=== PATIENT | female | born 1940 | race Caucasian/White ===

== ENCOUNTER → 2018-11-07 | Outpatient (CLI) | payer MEDICARE, BC ==
[~2018-11-07] MED LIST: COENZYME Q10 PO; Z.0.LISINOPRIL10 MG PO; Z.0.VITAMIN D3 1,01 PO; Z.1.VITAMIN E400 UNI PO; Z.6.FISH OIL 1,0001 PO
--- NOTE | 2018-11-07 13:53 | Diagnostic Imaging Report ---
EXAM: CT Abdomen and Pelvis WITHOUT intravenous contrast INDICATION: Diverticulitis COMPARISON: CT abdomen pelvis of 07/25/2011 TECHNIQUE: Abdomen and pelvis were scanned utilizing a multidetector helical scanner from the lung base to the pubic symphysis without administration of IV contrast. Coronal and sagittal reformations were obtained. IV CONTRAST: None ORAL CONTRAST: Gastrografin COMPLICATIONS: None RADIATION DOSE: Total DLP: 185.91 mGy*cm Dose modulation, iterative reconstruction, and/or weight based adjustment of the mA/kV was utilized to reduce the radiation dose to as low as reasonably achievable. FINDINGS: LOWER THORAX: Normal. HEPATOBILIARY: No focal hepatic lesions. No biliary ductal dilatation. The gallbladder appears unremarkable. SPLEEN: No splenomegaly. PANCREAS: No focal masses or ductal dilatation. ADRENALS: No adrenal nodules. KIDNEYS/URETERS: No hydronephrosis, stones, or solid mass lesions. PELVIC ORGANS/BLADDER: Status post hysterectomy. PERITONEUM / RETROPERITONEUM: No free air or fluid. LYMPH NODES: No lymphadenopathy. VESSELS: Dense atherosclerotic calcifications of the abdominal aorta and major branches. GI TRACT: Compared to the prior CT of 07/25/2011, there has been interval partial colectomy with anastomotic suture line at the sigmoid colon. No diverticulosis or CT evidence of diverticulitis. Status post appendectomy. BONES AND SOFT TISSUES: Right lower flank implanted nerve stimulator device with lead entering the spinal canal at the level of L1-2. IMPRESSION: Status post distal partial colectomy. No diverticulosis or diverticulitis. Signed by: Danica Winter MD on 11/07/2018 1:49 PM
== END ==
LOC: CT 11:58
PROVIDERS: ATTEND Family Medicine
DX: K57.32 Diverticulitis of large intestine without perforation or abscess without bleeding (principal)
CPT/HCPCS: 74176

== ENCOUNTER → 2018-11-22 | Outpatient (CLI) | payer MEDICARE, BC ==
--- NOTE | 2018-11-22 14:08 | Diagnostic Imaging Report ---
EXAM: US ABDOMEN COMPLETE DATE: 11/22/2018 11:07 AM INDICATION: Lower abdominal pain COMPARISON: None TECHNIQUE: Transverse and longitudinal gutierrez scale and color doppler sonographic images of the upper abdomen were obtained. FINDINGS: There is no evidence of fluid or masses seen in the area of clinical concern in the right lower quadrant. LIVER 11.9 cm in the right midclavicular line. Normal echogenicity of the liver with normal contour, no masses. SPLEEN Status post splenectomy GALLBLADDER No gallbladder wall thickening, distension, stone, or pericholecystic fluid. NEgative reported sonographic Gilbert's sign. Gallbladder wall measures 1 mm. BILE DUCTS No intra nor extra-hepatic biliary dilation. Common bile duct measures 0.3cm PANCREAS: Visualized portions are normal. RIGHT KIDNEY: 9.5 cm Echogenicity: Normal Collecting System: No hydronephrosis Stones: None Cyst/Mass: None LEFT KIDNEY: 10.1 cm Echogenicity: Normal Collecting System: No hydronephrosis Stones: None Cyst/Mass: None VESSELS: Aorta: Visualized portions are within normal size limits Inferior Vena Cava: Visualized portions are normal Main Portal Vein: 0.7 cm, normal size with hepatopetal flow. FREE FLUID: None IMPRESSION: Status post splenectomy. Otherwise, normal abdominal ultrasound. Signed by: Danica Winter MD on 11/22/2018 2:04 PM
--- NOTE | 2018-11-22 14:12 | Diagnostic Imaging Report ---
Exam: Pelvic ultrasound. History: Lower abdominal pain Comparison: Abdomen and pelvis CT of 11/07/2018 Findings: Transabdominal evaluation of the pelvis. Status post hysterectomy. The right ovary measures 2.0 x 1.1 x 1.5 cm. The left ovary measures 2.2 x 1.3 x 1.9 cm and contains a 1.4 x 1.1 x 1.3 cm simple cyst . Impression: Status post hysterectomy. Simple cyst of the right ovary measures 1.4 x 1.1 x 1.3 cm and is almost certainly benign. Recommend follow-up ultrasound in one year to ensure stability. Signed by: Danica Winter MD on 11/22/2018 2:08 PM
== END ==
LOC: US 11:00
PROVIDERS: ATTEND Internal Medicine Gastroenterology
DX: R10.31 Right lower quadrant pain (principal); R10.32 Left lower quadrant pain; R10.84 Generalized abdominal pain; Z68.21 Body mass index [BMI] 21.0-21.9, adult
CPT/HCPCS: 76700; 76856

== ENCOUNTER → 2019-01-02 | Outpatient (CLI) | payer MEDICARE, BC ==
--- NOTE | 2019-01-02 15:07 | Diagnostic Imaging Report ---
EXAM: Focused Soft Tissue Ultrasound Evaluation of the right neck INDICATION: ^[id number] ^[id number] ^ACUTE LYMPHADENITIS OF FACE / HEAD / NECK COMPARISON: None TECHNIQUE: Liu scale, color Doppler images of the right neck were obtained. FINDINGS: There is a 1.4 x 1.0 x 1.8 cm hypoechoic lesion at the inferior aspect of the right parotid gland with associated internal vascularity. A right cervical lymph node measures up to 2.5 x 0.8 x 1.3 cm. IMPRESSION: Hypoechoic lesion at the inferior aspect of the right parotid gland measuring 1.4 x 1.0 x 1.8 cm with associated internal vascularity. The differential includes sequela of sialoadenitis or entities such as pleomorphic adenoma. IMPRESSION: MRI with and without gadolinium would be helpful for further characterization. Signed by: Danica Winter MD on 01/02/2019 3:03 PM
== END ==
LOC: US 13:41
PROVIDERS: ATTEND Family Medicine
DX: L04.0 Acute lymphadenitis of face, head and neck (principal)
CPT/HCPCS: 76536

== ENCOUNTER → 2021-01-18 | Outpatient (CLI) | payer MEDICARE, BC | LOC: US 10:41 | PROVIDERS: ATTEND Family Medicine | DX: R94.4 Abnormal results of kidney function studies (principal) | CPT/HCPCS: 76770 ==

== ENCOUNTER → 2021-02-25 | Outpatient (CLI) | payer MEDICARE, BC | LOC: US 14:05 | PROVIDERS: ATTEND Nurse Practitioner Adult Health | DX: M54.31 Sciatica, right side (principal); N83.202 Unspecified ovarian cyst, left side | CPT/HCPCS: 72110; 76856 ==

== ENCOUNTER → 2022-01-06 | Outpatient (CLI) | payer MEDICARE, BC | LOC: CT 11:17 | PROVIDERS: ATTEND Otolaryngology | DX: H91.22 Sudden idiopathic hearing loss, left ear (principal) | CPT/HCPCS: 70480 ==

== ENCOUNTER → 2022-02-23 | Outpatient (CLI) | payer MEDICARE, BC | LOC: US 11:27 | PROVIDERS: ATTEND Family Medicine | DX: N20.0 Calculus of kidney (principal) | CPT/HCPCS: 76770 ==

== ENCOUNTER → 2022-03-01 | Outpatient (CLI) | payer MEDICARE, BC | LOC: CT 12:29 | PROVIDERS: ATTEND Family Medicine | DX: R94.4 Abnormal results of kidney function studies (principal) | CPT/HCPCS: 74176 ==

== ENCOUNTER 2024-06-07 12:42 | Emergency (ER) | payer BC, MEDICARE ==
[~2024-06-07] VITALS: Ht 160 cm; Wt 51.3 kg
[2024-06-07 12:42] VITALS: PULSE 67; RESP 16; TEMP 98.3; O2SAT 100
[2024-06-07] MEDS ORDERED: ONDANSETRON HCL INJ 2MG/ML 2ML 2 MG/ML VIAL IV STA (13:07)
[2024-06-07] MEDS ORDERED: SODIUM CHLORIDE 0.9% 1000ML 1,000 ML IV STA (13:07)
[2024-06-07] MEDS ORDERED: KETOROLAC TROMETHAMINE 30 MG/ML VIAL IV STA (13:07)
[2024-06-07 13:55] LABS: BILIRUBIN,URINE NEGATIVE (NEGATIVE); CLARITY,URINE CLEAR (CLEAR); COLOR,URINE YELLOW (YELLOW); GLUCOSE, URINE NEGATIVE (NEGATIVE); KETONES,URINE TRACE (NEGATIVE); LEUKOCYTE ESTERASE ,URINE NEGATIVE (NEGATIVE); NITRITE,URINE NEGATIVE (NEGATIVE); PH,URINE 7 (5 - 7); PROTEIN,URINE DIPSTICK NEGATIVE (NEGATIVE); URINE UROBILINOGEN 1 mg/dL (0.2 - 1)
[2024-06-07 14:02] LABS: EPITHELIAL CELLS,URINE MANY /LPF; WBC,URINE (MAN) 0-5 /HPF (0-5)
[2024-06-07] MEDS ORDERED: ULTRAM 50MG50 MG PO (14:11)
[2024-06-07] MEDS ORDERED: ONDANSETRON ODT4 MG PO (14:43)
[2024-06-07] MEDS: TRAMADOL HCL 50 MG TAB PO STA ×2 (14:46→14:51)
[2024-06-07] MEDS: ONDANSETRON HCL 4 MG ORAL DISINTEGRATING TAB PO STA (14:51)
== END 2024-06-07 15:28 | disposition home or self-care (01) ==
LOC: ER 12:46
DX: R10.9 Unspecified abdominal pain (principal); K57.90 Diverticulosis of intestine, part unspecified, without perforation or abscess without bleeding; I10 Essential (primary) hypertension; Z87.442 Personal history of urinary calculi; Z87.19 Personal history of other diseases of the digestive system
CPT/HCPCS: 74176; 81001; 99284; Q0162